=== PATIENT | female | born 1965 | race Caucasian/White ===

== ENCOUNTER 2019-11-07 20:10 | Emergency (ER) | payer SELFPAY ==
--- NOTE | 2019-11-07 20:51 | ER Document Report ---
ED Medical Screen (RME) - General Chief Complaint: Chest Pain Stated Complaint: CHEST PAIN Time Seen by Provider: 11/07/19 20:43 - HPI Notes: 11/07/19 20:49 Patient is a 54-year-old female with history of hypothyroidism who presents complaining of incident of chest pain when she was with her family today without precipitating event that radiate up into her jaw and neck on the right side. Patient states that she does have an aching to her left arm. Patient states that the pain went away pretty quickly, but returned a few minutes later and then resolved again. No fever, abd pain, n/v/d. Pt took 2 adult 325mg aspirins prior to arrival, not the 81mg tabs. I have treated and performed a rapid initial assessment of this patient. A comprehensive ED assessment and evaluation of the patient, analysis of test results and completion of medical decision making process will be conducted by additional ED providers. PHYSICAL EXAMINATION: GENERAL: Well-appearing, well-nourished and in no acute distress. A&Ox4. Answers questions appropriately. Lungs: CTAB Heart: RRR Extremities: No edema - Related Data Allergies/Adverse Reactions: Penicillins Allergy (Verified 11/07/19 20:36) Home Medications: Testosterone. estradol. Thyroid med Past Medical History - Social History Chew tobacco use (# tins/day): No Frequency of alcohol use: Occasional Drug Abuse: None Physical Exam - Vital signs Vitals: Temp Pulse Resp BP Pulse Ox 97.3 F 77 18 125/83 100 11/07/19 20:15 11/07/19 20:15 11/07/19 20:15 11/07/19 20:15 11/07/19 20:15 Course - Vital Signs Vital signs: Temp Pulse Resp BP Pulse Ox 97.3 F 77 18 125/83 100 11/07/19 20:15 11/07/19 20:15 11/07/19 20:15 11/07/19 20:15 11/07/19 20:15
--- NOTE | 2019-11-07 21:54 | RADIOLOGY REPORT (SQ) ---
EXAM DESCRIPTION: XR CHEST 2 VIEWS COMPLETED DATE/TME: 11/07/2019 20:47 CLINICAL HISTORY: 54 years, Female, CP COMPARISON: None. NUMBER OF VIEWS: 2 TECHNIQUE: 2 views of the chest LIMITATIONS: None. FINDINGS: Heart size is normal. Calcified granuloma right upper lobe. Lungs are otherwise clear. No pneumothorax IMPRESSION: No acute cardiopulmonary process copyright 2010 [employer]- All Rights Reserved
[2019-11-07 21:59] LABS: ABSOLUTE BASOPHILS # (AUTO) 0.1 10^3/uL (0.0-0.2); ABSOLUTE EOSINOPHILS # (AUTO) 0.2 10^3/uL (0.0-0.6); ABSOLUTE LYMPHOCYTES (AUTO) 2.8 10^3/uL (0.5-4.7); ABSOLUTE MONOCYTES (AUTO) 0.6 10^3/uL (0.1-1.4); BASOPHILS % (AUTO) 0.9 % (0-2); EOSINOPHILS % (AUTO) 2.6 % (0-6); HEMOGLOBIN 14.5 g/dL (12.0-15.5); LYMPHOCYTES % (AUTO) 36.8 % (13-45); MEAN CORPUSCULAR HEMOGLOBIN 32.1 pg (27.0-33.4); MEAN CORPUSCULAR HGB CONC 34.4 g/dL (32.0-36.0); MEAN CORPUSCULAR VOLUME 93 fl (80-97); MONOCYTES % (AUTO) 8.1 % (3-13); PLATELET COUNT 326 10^3/uL (150-450); RED BLOOD COUNT 4.51 10^6/uL (3.72-5.28); RED CELL DISTRIBUTION WIDTH 12.6 % (11.5-14.0); SEGMENTED NEUTROPHILS % (AUTO) 51.6 % (42-78); TOTAL CELLS COUNTED % (AUTO) 100 %; WHITE BLOOD COUNT 7.7 10^3/uL (4.0-10.5)
[2019-11-07 22:18] LABS: ALBUMIN 4.1 g/dL (3.5-5.0); ALKALINE PHOSPHATASE 57 U/L (38-126); ANION GAP 10 (5-19); ASPARTATE AMINO TRANSFERASE 26 U/L (14-36); BILIRUBIN,DIRECT 0.1 mg/dL (0.0-0.4); BILIRUBIN,TOTAL 0.2 mg/dL (0.2-1.3); BLOOD UREA NITROGEN 20 mg/dL (7-20); CALCIUM 9.3 mg/dL (8.4-10.2); CARBON DIOXIDE 29 mmol/L (22-30); CHLORIDE 97 mmol/L (98-107); GLUCOSE 91 mg/dL (75-110); POTASSIUM 3.5 mmol/L (3.6-5.0); TOTAL PROTEIN 6.7 g/dL (6.3-8.2)
[2019-11-07 22:22] LABS: APPEARANCE,URINE CLEAR; BILIRUBIN,URINE NEGATIVE (NEGATIVE); COLOR,URINE STRAW; GLUCOSE, URINE NEGATIVE (NEGATIVE); KETONES,URINE NEGATIVE (NEGATIVE); LEUKOCYTE ESTERASE,URINE NEGATIVE (NEGATIVE); NITRITE,URINE NEGATIVE (NEGATIVE); PROTEIN,URINE NEGATIVE (NEGATIVE); URINE SPECIFIC GRAVITY 1.006; UROBILINOGEN,URINE NEGATIVE mg/dL (<2.0)
--- NOTE | 2019-11-08 00:26 | ER Document Report ---
ED Cardiac - General Chief Complaint: Chest Pain Stated Complaint: CHEST PAIN Time Seen by Provider: 11/07/19 20:43 Notes: Patient is a 54-year-old female that comes to the emergency department for chief complaint of chest pain. She states this happened prior to arrival while she was standing in line at a restaurant. Pain lasted for a couple of minutes, sharp, center of her chest, radiated up to her jaw, she states it went away and then came back, when it came back she felt a tingling sensation in her left hand. She states after that she took two full dose (324 mg) aspirins and came to the emergency department. She denies symptoms since her current symptoms. She denies dizziness, shortness of breath, nausea or vomiting, cough, fevers. She is treated for hypothyroidism with Synthroid, she is on hormone supplement after hysterectomy in her 20s, she admits to smoking. She denies recreational drugs, or frequent alcohol. She states her dad had "heart problems" but she is uncertain if he had an MT. Patient denies lower extremity swelling. - Related Data Allergies/Adverse Reactions: Penicillins Allergy (Verified 11/07/19 20:36) Home Medications: Testosterone. estradol. Thyroid med Past Medical History - General Information source: Patient - Social History Smoking Status: Current Every Day Smoker Chew tobacco use (# tins/day): No Frequency of alcohol use: Occasional Drug Abuse: None Lives with: Spouse/Significant other Family History: Reviewed & Not Pertinent Patient has suicidal ideation: No Patient has homicidal ideation: No Endocrine Medical History: Reports: Hx Hypothyroidism Past Surgical History: Reports: Hx Hysterectomy Review of Systems - Review of Systems Constitutional: No symptoms reported EENT: No symptoms reported Cardiovascular: See HPI Respiratory: No symptoms reported Gastrointestinal: No symptoms reported Genitourinary: No symptoms reported Female Genitourinary: No symptoms reported Musculoskeletal: No symptoms reported Skin: No symptoms reported Hematologic/Lymphatic: No symptoms reported Neurological/Psychological: No symptoms reported Physical Exam - Vital signs Vitals: Temp Pulse Resp BP Pulse Ox 97.3 F 77 18 125/83 100 11/07/19 20:15 11/07/19 20:15 11/07/19 20:15 11/07/19 20:15 11/07/19 20:15 - Notes Notes: GENERAL: Alert, interacts well. No acute distress. HEAD: Normocephalic, atraumatic. EYES: Pupils equal, round, and reactive to light. Extraocular movements intact. ENT: Oral mucosa moist, tongue midline. Oropharynx unremarkable. Airway patent. NECK: Full range of motion. Supple. Trachea midline. LUNGS: Clear to auscultation bilaterally, no wheezes, rales, or rhonchi. No respiratory distress. HEART: Regular rate and rhythm. No murmur ABDOMEN: Soft, non-tender. Non-distended. Bowel sounds present in all 4 quadrants. GENITOURINARY: Deferred EXTREMITIES: Moves all 4 extremities spontaneously. No edema, normal radial and dorsalis pedis pulses bilaterally. No cyanosis. BACK: no cervical, thoracic, lumbar midline tenderness. No saddle anesthesia, normal distal neurovascular exam. Moves all extremities in full range of motion. NEUROLOGICAL: Alert and oriented x3. Normal speech. Cranial nerves II through XII grossly intact. PSYCH: Normal affect, normal mood. SKIN: Warm, dry, normal turgor. No rashes or lesions noted. Course - Re-evaluation Re-evalutation: Patient is asymptomatic currently, well-appearing. She does reportedly smoke, has positive family history, and she is 54 years old. Heart score is still equal to or less than 3. 2 negative troponins were obtained. EKG was repeated as well and now appears to show inverted T waves in leads II, 3, aVF. Showed this and discussed with attending and concern is that she is having dynamic EKG changes, recommendation is admission. I spoke with Dr. Parker, hospitalist, we do not have stress test capability this weekend and he feels that patient should be transferred as a result. I discussed with patient, she requests [facility]. She is still currently chest pain-free. 11/08/19 02:[address] Sequeira, internal medicine, he states he is going to check on beds for admission but if patient progresses to STEMI I will be calling the STEMI hotline. As I was speaking to Dr. Sequeira the came out and informed me that the patient was having chest pain for the first time since she has been here, we will repeat EKG now and give nitroglycerin. D-dimer added. Updated attending. 11/08/19 02:23 EKG repeated and is normal again. Based on aVL and inferior leads both being changed with the previous EKG I am wondering if this is just simply lead placement with the second EKG. I did discuss with the PCT, she states she use the same stickers that were in place with the first EKG. Regardless at this time patient is having chest pain and she did have a concerning story, in addition to this we do not have the ability to perform stress test or evaluate her from a cardiology standpoint as result so I discussed with Dr. Patel and he still recommends that she be transferred for cardiology evaluation especially with her having chest pain again. 11/08/19 02:55 Pain resolved with nitroglycerin. D-dimer is negative. Transport team is on their way, patient without current complaints. 11/08/19 05:00 Transport team is here, patient reevaluated bedside, no current complaints of chest pain, no other complaints. Vital signs unremarkable. Stable for transpor t - Vital Signs Vital signs: Temp Pulse Resp BP Pulse Ox 98.6 F 89 12 104/61 98 11/08/19 05:15 11/08/19 05:15 11/08/19 05:15 11/08/19 05:15 11/08/19 05:15 - Laboratory Result Diagrams: 11/07/19 21:40 11/07/19 21:40 Laboratory results interpreted by me: 11/07/19 21:40 Sodium 136.2 L Potassium 3.5 L Chloride 97 L - EKG Interpretation by Me Additional EKG results interpreted by me: EKG sinus rhythm at a rate of 72, QTc 416, anterior possible borderline ST elevation but this appears to be J-point elevation only. No noted ischemic T waves or ST segment changes in consecutive leads. Discharge - Discharge Clinical Impression: Acute electrocardiogram changes Chest pain Qualifiers: Chest pain type: unspecified Qualified Code(s): R07.9 - Chest pain, unspecified Condition: Stable Disposition: [facility]
[2019-11-08] MEDS ORDERED: NITROGLYCERIN 0.4 MG/TAB 25 TAB/BOTTLE ONE (02:18)
[2019-11-08] MEDS: NITROGLYCERIN 0.4 MG/TAB 25 TAB/BOTTLE SL PRN ×2 (02:20→02:35)
[2019-11-08 05:15] VITALS: BP 104/61
--- NOTE | 2019-11-08 13:44 | EKG REPORT ---
SEVERITY:- NORMAL ECG - SINUS RHYTHM : Confirmed by: Jodi Carter MD 08-Nov-2019 13:43:38
--- NOTE | 2019-11-08 13:44 | EKG REPORT ---
SEVERITY:- ABNORMAL ECG - ECTOPIC ATRIAL RHYTHM PROBABLE LEFT VENTRICULAR HYPERTROPHY INFERIOR INFARCT, AGE INDETERMINATE : Confirmed by: Jodi Carter MD 08-Nov-2019 13:43:45
--- NOTE | 2019-11-08 13:44 | EKG REPORT ---
SEVERITY:- NORMAL ECG - SINUS RHYTHM ST ELEV, PROBABLE NORMAL EARLY REPOL PATTERN : Confirmed by: Jodi Carter MD 08-Nov-2019 13:43:51
== END 2019-11-08 05:15 | disposition short-term general hospital (02) ==
LOC: ER 20:10
DX: R07.9 Chest pain, unspecified (principal); R94.31 Abnormal electrocardiogram [ECG] [EKG]; R20.2 Paresthesia of skin; E03.9 Hypothyroidism, unspecified; F17.200 Nicotine dependence, unspecified, uncomplicated; Z79.899 Other long term (current) drug therapy; Z90.710 Acquired absence of both cervix and uterus; Z88.0 Allergy status to penicillin
CPT/HCPCS: 36415; 71046; 80053; 81001; 83735; 84443; 84484; 85025; 85379; 93005; 93010; 99285